=== PATIENT | female | born 1995 | race Caucasian/White ===

== ENCOUNTER 2017-08-28 16:49 | Emergency (ER) | payer OTHER ==
[~2017-08-28] VITALS: Ht 154.9 cm; Wt 90.0 kg
[2017-08-28] MEDS ORDERED: KETOROLAC TROMETHAMINE 60 MG/2 ML VIAL IM ONE (19:15)
[2017-08-28 20:28] VITALS: BP 118/68
== END 2017-08-28 21:24 | disposition home or self-care (01) ==
LOC: EMS 16:52
DX: S82.832A Other fracture of upper and lower end of left fibula, initial encounter for closed fracture (principal); S20.211A Contusion of right front wall of thorax, initial encounter; V49.49XA Driver injured in collision with other motor vehicles in traffic accident, initial encounter; Y93.89 Activity, other specified; Y92.89 Other specified places as the place of occurrence of the external cause; Y99.8 Other external cause status
CPT/HCPCS: 29505; 71045; 73562; 81025; 96372; 99284; J1885